=== PATIENT | female | born 1965 | race Caucasian/White ===

== ENCOUNTER 2020-02-11 17:10 | Outpatient (CLI) | payer OTHER, SELFPAY ==
--- NOTE | 2020-02-11 | MR_ITS ---
WS: [id number] MRI CERVICAL SPINE HISTORY: NUMBNESS, HAND, COMPARISON: None available. Straightening and slight reversal of the normal cervical lordosis centered at the C5 level. C5 retrol isthesis by 3.7 mm. There is vertebral body contact on the ventral surface of the cord causing a mild undulation of the cord. Small amount of marrow edema along the LEFT lateral C5 and C6 vertebral bodi es. Moderate degenerative disc disease at C5-6. Small to moderate osteophytes extend into the foramen at C5 and C6. There is motion artifact causing incomplete evaluation of the cervical cord signal. Th ere is no atrophy or enlargement. Visualized posterior fossa is negative. Craniocervical junction, C1 and C2 relationship, odontoid process and soft tissues are normal. C2-C3: Normal. C3-C4: Normal. C4-C5: Mild osteophytic ridging. No significant stenosis. C5-C6: Diffuse osteophytic ridging. Moderate-sized disc osteophyte complex centrally with effacement of CSF and deformity of the cord. Mild central and bilateral foraminal stenosis. Stenosis slightly gr eater on the LEFT. C6-C7: Mild osteophytic ridging and annular disc bulging. Very mild bilateral foraminal narrowing due to disc osteophyte disease. C7-T1: Normal. Paraspinal soft tissue are normal. MR/MR cervical spin wo con* [id number] IMPRESSION: 1. Moderate degenerative disc disease at C5-6 with C5 retrolisthesis causing c ontact on the ventral cord by 3.7 mm. 2. There is mild central and bilateral foraminal stenosis at C5-6 due to disc and osteophyte disease and C5 retrolisthesis. 3. Cord edema or myelomalacia cannot be excluded due to motion. 4. There is a small amount of marrow edema in the LEFT C5 and C6 vertebral bod ies which may be reactive.
== END 2020-02-11 17:11 | disposition home or self-care (01) ==
LOC: RADSHAW 17:15
PROVIDERS: PCP Nurse Practitioner Family; Visit Provider Nurse Practitioner Family
DX: R20.0 Anesthesia of skin (principal); M50.322 Other cervical disc degeneration at C5-C6 level; M48.02 Spinal stenosis, cervical region; R60.9 Edema, unspecified
CPT/HCPCS: 72141

== ENCOUNTER → 2020-04-06 08:25 | Outpatient (BNVA) | payer SELFPAY | PROVIDERS: PCP Nurse Practitioner Family; Visit Provider Specialist | DX: G56.22 Lesion of ulnar nerve, left upper limb (principal) | CPT/HCPCS: 95910 ==

== ENCOUNTER 2020-10-01 10:21 | Outpatient (CLI) | payer OTHER, SELFPAY ==
--- NOTE | 2020-10-01 10:27 | MM_ITS ---
WS: [id number] BILATERAL SCREENING DIGITAL MAMMOGRAM WITH CAD HISTORY: SCREENING COMPARISON: 06/27/2017 and 03/08/2016 Bilateral CC and MLO views submitted. Computer aided detection analyzed. Breast composition: There are scattered areas of fibroglandular density. No suspicious masses, microc alcifications or architectural distortion. Coarse calcification in the RIGHT breast. Scattered asymme tries are stable. MM/[id number] IMPRESSION: BI-RADS: 2-Benign FOLLOW UP: 1 Year Follow-up
== END 2020-10-01 10:22 | disposition home or self-care (01) ==
LOC: RADSHAW 10:25
PROVIDERS: PCP Nurse Practitioner Family; Visit Provider Nurse Practitioner Family
DX: Z12.31 Encounter for screening mammogram for malignant neoplasm of breast (principal)
CPT/HCPCS: 77067

== ENCOUNTER → 2020-10-05 10:16 | Outpatient (BNVA) | payer OTHER, SELFPAY | PROVIDERS: PCP Nurse Practitioner Family; Referring Provider Nurse Practitioner Family; Visit Provider Internal Medicine | DX: E11.42 Type 2 diabetes mellitus with diabetic polyneuropathy (principal); E11.65 Type 2 diabetes mellitus with hyperglycemia; E16.0 Drug-induced hypoglycemia without coma; T14.8XXA Other injury of unspecified body region, initial encounter; G56.22 Lesion of ulnar nerve, left upper limb | CPT/HCPCS: 99205 ==

== ENCOUNTER 2021-03-05 10:18 | Outpatient (CLI) | payer OTHER, SELFPAY ==
[2021-03-05 11:11] LABS: Estmated Average Glucose 237; Hemoglobin A1C 9.9 % (4.0-6.0)
== END 2021-03-05 10:19 | disposition home or self-care (01) ==
PROVIDERS: PCP Nurse Practitioner Family; Visit Provider Internal Medicine
DX: E11.65 Type 2 diabetes mellitus with hyperglycemia (principal)
CPT/HCPCS: 36415; 83036

== ENCOUNTER 2021-08-19 12:30 | Outpatient (RCR) | payer OTHER, SELFPAY | END 2021-08-23 23:59 | disposition home or self-care (01) | LOC: SOT 12:30 | PROVIDERS: PCP Orthopaedic Surgery Hand Surgery; Visit Provider Orthopaedic Surgery Hand Surgery | DX: Z47.89 Encounter for other orthopedic aftercare (principal) | CPT/HCPCS: 97165 ==

== ENCOUNTER → 2021-08-24 09:52 | Outpatient (BNVA) | payer OTHER, SELFPAY | PROVIDERS: PCP Orthopaedic Surgery Hand Surgery; Visit Provider Nurse Practitioner Family | DX: Z20.822 Contact with and (suspected) exposure to COVID-19 (principal) | CPT/HCPCS: 87426 ==

== ENCOUNTER → 2022-01-31 15:26 | Outpatient (BNVA) | payer OTHER, SELFPAY | PROVIDERS: PCP Orthopaedic Surgery Hand Surgery; Visit Provider Clinical Nurse Specialist Adult Health | DX: R41.3 Other amnesia (principal) | CPT/HCPCS: 81000 ==

== ENCOUNTER 2022-09-23 15:36 | Outpatient (CLI) | payer OTHER, SELFPAY ==
--- NOTE | 2022-09-23 15:49 | MM_ITS ---
WS: [id number] BILATERAL 3D TOMOSYNTHESIS DIGITAL SCREENING MAMMOGRAPHY WITH CAD CLINICAL INFORMATION: SCREENING HISTORY: Screening mammogram. No current complaints. COMPARISON: 2020 TECHNIQUE: Bilateral CC and MLO views. FINDINGS: History of breast reduction. Scattered fibroglandular densities bilaterally. No suspicious focal mass, asymmetry, calcifications, or architectural distortion. No evidence of malignancy. Punctate and lucent centered calcifications. Parenchymal scarring posterior depth LEFT breast likely due to breast reduction. This is partially vi sualized previously. MM/[place] [id number] IMPRESSION: BI-RADS: 2-Benign FOLLOW UP: 1 Year Follow-up Recommend return to annual screening mammography.
== END 2022-09-23 15:37 | disposition home or self-care (01) ==
LOC: RAD 15:41
PROVIDERS: PCP Clinical Nurse Specialist Adult Health; Visit Provider Clinical Nurse Specialist Adult Health
DX: Z12.31 Encounter for screening mammogram for malignant neoplasm of breast (principal)
CPT/HCPCS: 77063; 77067

== ENCOUNTER → 2023-03-16 08:03 | Outpatient (BNVA) | payer OTHER, SELFPAY | PROVIDERS: PCP Clinical Nurse Specialist Adult Health; Visit Provider Clinical Nurse Specialist Adult Health | DX: Z00.00 Encounter for general adult medical examination without abnormal findings (principal) | CPT/HCPCS: 87624 ==

== ENCOUNTER → 2023-03-24 10:06 | Outpatient (BNVA) | payer OTHER, SELFPAY | PROVIDERS: PCP Clinical Nurse Specialist Adult Health; Visit Provider Clinical Nurse Specialist Adult Health | DX: Z00.00 Encounter for general adult medical examination without abnormal findings (principal) | CPT/HCPCS: 80053; 80061; 83036; 85025 ==

== ENCOUNTER → 2023-08-30 12:42 | Outpatient (BNVA) | payer OTHER, SELFPAY | PROVIDERS: PCP Clinical Nurse Specialist Adult Health; Visit Provider Internal Medicine | DX: E11.65 Type 2 diabetes mellitus with hyperglycemia (principal); E11.42 Type 2 diabetes mellitus with diabetic polyneuropathy; E16.0 Drug-induced hypoglycemia without coma; T38.3X5A Adverse effect of insulin and oral hypoglycemic [antidiabetic] drugs, initial encounter; R79.89 Other specified abnormal findings of blood chemistry | CPT/HCPCS: 80053; 80061; 82044; 82306; 83036; 84681; 86337; 86341 ==

== ENCOUNTER 2024-03-01 13:32 | Outpatient (CLI) | payer OTHER, SELFPAY ==
--- NOTE | 2024-03-01 13:40 | MM_ITS ---
WS: [id number] BILATERAL 3D TOMOSYNTHESIS DIGITAL SCREENING MAMMOGRAPHY WITH CAD CLINICAL INFORMATION: SCREENING HISTORY: Screening mammogram. History of breast reduction COMPARISON: 09/23/2022 TECHNIQUE: Bilateral CC and MLO views. FINDINGS: Scattered fibroglandular densities bilaterally. No suspicious focal mass, asymmetry, calcifications, or architectural distortion. No evidence of malignancy. Dystrophic calcification RIGHT breast. A few scattered incidental punctate calcifications. MM/[place] [id number] IMPRESSION: BI-RADS: 2-Benign FOLLOW UP: 1 Year Follow-up Recommend return to annual screening mammography.
== END 2024-03-01 13:33 | disposition home or self-care (01) ==
LOC: RAD 13:33
PROVIDERS: PCP Clinical Nurse Specialist Adult Health; Visit Provider Clinical Nurse Specialist Adult Health
DX: Z12.31 Encounter for screening mammogram for malignant neoplasm of breast (principal)
CPT/HCPCS: 77063; 77067

== ENCOUNTER → 2024-03-30 16:03 | Outpatient (BNVA) | payer OTHER, SELFPAY | PROVIDERS: PCP Clinical Nurse Specialist Adult Health; Visit Provider Emergency Medicine | DX: R39.9 Unspecified symptoms and signs involving the genitourinary system (principal) | CPT/HCPCS: 81000; 87086 ==

== ENCOUNTER → 2024-04-29 15:15 | Outpatient (BNVA) | payer OTHER, SELFPAY | PROVIDERS: PCP Clinical Nurse Specialist Adult Health; Referring Provider Internal Medicine; Visit Provider Internal Medicine Cardiovascular Disease | DX: R00.0 Tachycardia, unspecified (principal); E10.9 Type 1 diabetes mellitus without complications; E78.2 Mixed hyperlipidemia | CPT/HCPCS: 93005 ==

== ENCOUNTER 2024-06-07 10:07 | Outpatient (CLI) | payer OTHER, SELFPAY ==
--- NOTE | 2024-06-07 10:00 | USCV_ITS ---
Charo Colunga Age: 59 Gender: F : 1965 Exam Date: 06/07/2024 10:36 Ordering Phys: Waqas Hills MD ([email or web address]) Technologist: Nestor Powers [place] [facility] [place]: palpitations BP: 124 / 62 HR: 91 Rhythm: Sinus Technical Quality: Adequate MEASUREMENTS (Male / Female) Normal Values 2D ECHO LV Diastolic Diameter PLAX 2.8 cm 4.2 - 5.9 / 3.9 - 5.3 cm IVS Diastolic Thickness 1.2 cm 0.6 - 1.0 / 0.6 - 0.9 cm IVS Systolic Thickness 1.8 cm LVPW Diastolic Thickness 1.6 cm 0.6 - 1.0 / 0.6 - 0.9 cm LVPW Systolic Thickness 1.9 cm LVOT Diameter 2.0 cm LV Ejection Fraction 2D Teich 92.3 % LV Ejection Fraction MOD 4C 74.1 % LV Ejection Fraction MOD 2C 74.0 % LV Ejection Fraction 2C AL 76.0 % LA Diameter 3.6 cm RA Systolic Volume 4C AL 23.5 ml RA Systolic Volume 4C MOD 24.9 ml LA Sys Volume AL 30.1 cm cubed LA Sys Volume Index AL 19.1 cm cubed/m squared Aorta at Sinotubular Diameter 2.4 cm IVC Diameter 1.5 cm M-MODE LA Ao Ratio MM 1.8 AV Cusp Separation MM 1.6 cm DOPPLER AV Peak Velocity 155.0 cm/s LVOT Peak Velocity 102.0 cm/s AV Area Cont Eq vti 1.7 cm squared AV Area Cont Eq pk 2.1 cm squared MV Peak Velocity 86.0 cm/s MV Area PHT 7.9 cm squared Mitral E to A Ratio 0.8 TR Peak Velocity 90.0 cm/s TR Peak Gradient 3.2 mmHg TR Mean Velocity 55.0 cm/s TR Mean Gradient 1.5 mmHg TR Velocity Time Integral 14.8 cm PV Peak Velocity 90.7 cm/s RV Ejection Time 0.3 s FINDINGS Left Ventricle Mild to moderate concentric left ventricular hypertrophy. Normal LV ejection fraction of 74%.Grade I/IV diastolic dysfunction (abnormal relaxation filling pattern), normal to mildly elevated filling pressures. Right Ventricle The right ventricle is normal in size and function. Right Atrium The right atrium is normal in size. Left Atrium The left atrium is normal in size. Mitral Valve Trace mitral valve regurgitation. Aortic Valve No gross abnormalities noted Tricuspid Valve No gross abnormalities noted Pulmonic Valve No gross abnormalities noted Pericardium Normal pericardium without effusion. Aorta Normal ascending aorta dimension. IVC Normal inferior vena cava. CONCLUSIONS Mild to moderate concentric left ventricular hypertrophy. Normal LV ejection fraction of 74%.Grade I/IV diastolic dysfunction (abnormal relaxation filling pattern), normal to mildly elevated filling pressures. Trace mitral valve regurgitation. Possibly normal chamber sizes There is no pericardial effusion. No similar previous studies are available for comparison Dr Waqas Hills MD FAC (Electronically Signed) Final Date: 14 June 2024 09:21 S
== END 2024-06-07 10:08 | disposition home or self-care (01) ==
LOC: RAD 10:10
PROVIDERS: PCP Clinical Nurse Specialist Adult Health; Visit Provider Internal Medicine Cardiovascular Disease
DX: R06.09 Other forms of dyspnea (principal); I50.30 Unspecified diastolic (congestive) heart failure
CPT/HCPCS: 93306

== ENCOUNTER → 2024-06-25 14:06 | Outpatient (BNVA) | payer OTHER, SELFPAY | PROVIDERS: PCP Family Medicine; Visit Provider Family Medicine | DX: E10.9 Type 1 diabetes mellitus without complications (principal); E78.2 Mixed hyperlipidemia; E55.9 Vitamin D deficiency, unspecified | CPT/HCPCS: 80053; 80061; 82306; 83036; 85025 ==

== ENCOUNTER → 2024-11-18 15:01 | Outpatient (BNVA) | payer OTHER, SELFPAY | PROVIDERS: PCP Family Medicine; Visit Provider Family Medicine | DX: E10.9 Type 1 diabetes mellitus without complications (principal); E55.9 Vitamin D deficiency, unspecified; E78.2 Mixed hyperlipidemia | CPT/HCPCS: 80053; 80061; 82043; 82306; 83036 ==